=== PATIENT | male | born 1995 | race Asian ===

== ENCOUNTER 2016-12-05 21:47 | Emergency (ER) | payer BC ==
[~2016-12-05] VITALS: Ht 177.8 cm; Wt 79.5 kg
[2016-12-06] MEDS ORDERED: SODIUM CHLORIDE 0.9% 250 ML IRRIG SOLUTION BOTTLE IRRIG ONE (02:45)
[2016-12-06] MEDS ORDERED: PERTUSS(ACELL),DIPH,TET VAC/PF 0.5 ML VIAL IM ONE (02:45)
[2016-12-06] MEDS ORDERED: HYDROCODONE/ACETAMINOPHEN 5-325 MG TABLET PO ONE (02:45)
[2016-12-06 03:05] VITALS: BP 111/62
== END 2016-12-06 03:29 | disposition home or self-care (01) ==
LOC: EMS 21:50
DX: S01.81XA Laceration without foreign body of other part of head, initial encounter (principal); J45.909 Unspecified asthma, uncomplicated; W22.8XXA Striking against or struck by other objects, initial encounter; Y93.89 Activity, other specified; Y92.89 Other specified places as the place of occurrence of the external cause; Y99.8 Other external cause status
CPT/HCPCS: 90471; 90715; 99283